=== PATIENT | male | born 1970 | race Caucasian/White ===

== ENCOUNTER 2018-12-05 07:47 | Emergency (ER) | payer OTHER ==
--- NOTE | 2018-12-05 08:49 | UC ---
General HPI - HPI Summary HPI Summary: States he had a engorged tick that he found while taking a shower 8 days ago. States it could not have been on him for more than 24 hours. No local reaction to the tick bite. Yesterday was having body aches and low grade temp of 100.4. No N/V/D. This morning noticed a rash at site of tick that was concerning. Meds: reviewed - History of Current Complaint Chief Complaint: UCSkin Stated Complaint: TICK BITE Time Seen by Provider: 12/05/18 08:35 Pain Intensity: 3 - Allergy/Home Medications Allergies/Adverse Reactions: Allergies Allergy/AdvReac Type Severity Reaction Status Date / Time Penicillins Allergy unk Verified 12/05/18 08:01 Home Medications: Home Medications Vit D3/Folic Acid/B2/B6/B12 1 tab PO DAILY 12/05/18 [History Confirmed 12/05/18] PMH/Surg Hx/FS Hx/Imm Hx Previously Healthy: Yes - Surgical History Surgical History: Yes Surgery Procedure, Year, and Place: [place] - Social History Alcohol Use: Rare Substance Use Type: None Smoking Status (MU): Never Smoked Tobacco Review of Systems All Other Systems Reviewed And Are Negative: Yes Physical Exam Triage Information Reviewed: Yes Appearance: Well-Appearing Vital Signs: Initial Vital Signs Temp 97.7 F 12/05/18 07:58 Pulse 84 12/05/18 07:58 Resp 17 12/05/18 07:58 BP 151/95 12/05/18 07:58 Pulse Ox 100 12/05/18 07:58 Vital Signs Reviewed: Yes Skin Exam: Other - 5-6 cm circular erythema migrans on upper left chest Course/Dx - Course Course Of Treatment: This is a 48 yr old who had an engorged tick last week now with a rash Assessment Timeline not typical but rash does appear to be erythema migrans Plan Recommend starting Doxycyline 100mg as prescribed - take with full glass of water Can consider lyme studies when you follow up with your PCP in three weeks Monitor rash If symptoms persist or worsen, recommend follow up with PCP or return to urgent care - Diagnoses Provider Diagnosis: Erythema migrans (Lyme disease) Discharge - Sign-Out/Discharge Documenting (check all that apply): Patient Departure All imaging exams completed and their final reports reviewed: No Studies - Discharge Plan Condition: Good Disposition: HOME Prescriptions: DOXYcycline CAP(*) [DOXYcycline 100MG CAP(*)] 100 mg PO BID #28 cap Patient Education Materials: Lyme Disease (ED) Referrals: No Primary Care Phys,NOPCP [Primary Care Provider] - Additional Instructions: Recommend starting Doxycyline 100 as prescribed - take with full glass of water Can consider lyme studies when you follow up with your PCP in three weeks Monitor rash If symptoms persist or worsen, recommend follow up with PCP or return to urgent care - Billing Disposition and Condition Condition: GOOD Disposition: Home
== END 2018-12-05 08:53 | disposition home or self-care (01) ==
LOC: UCEAST 07:47
DX: A69.20 Lyme disease, unspecified (principal); Z88.0 Allergy status to penicillin
CPT/HCPCS: 99202; G0463